=== PATIENT | female | born 1990 | race Caucasian/White ===

== ENCOUNTER 2017-06-09 19:45 | Emergency (ER) | payer OTHER ==
[2017-06-09 20:06] VITALS: BP 133/85; BMI 40.1
--- NOTE | 2017-06-14 10:55 | DR.GENAD ---
HPI - PCP Primary Care Physician: ARMAAN - Complaint/Symptoms Chief Complaint:: FELL IN THE YARD AT HOME WHILE TRYING TO MOVE THE TRASH CAN - Source History Provided: Patient - Mode of Arrival Mode of Arrival: Ambulatory - Timing Onset of Chief Complaint: 06/09/17 PMH - PMH Past Medical History: Yes Past Medical History: Asthma, Hypertension Past Surgical History: Yes Surgical History: - Family History History of Family Medical Conditions: Yes Family Medical History: Cancer, Coronary Artery Disease, Hypertension - Social History Does patient currently use any type of tobacco product: Yes Have you used tobacco products in the last 12 months: Yes Type of Tobacco Use: Cigarettes How many years tobacco product used: 13 Alcohol Use: None Do you use any recreational Drugs:: No Lives With: Friend Lives Where: Home - infectious screening In the last 2 months have you had wt loss of >10#?: NO Have you had fever, night sweats or hemotysis?: No Have you traveled outside the country in the last 6 months?: No PE - Vital Signs Vitals: Temperature 99.2 F Pulse Rate 116 Respiratory Rate 20 Blood Pressure [Right Arm] 133/67 Blood Pressure [Left Arm] 130/76 Blood Pressure 133/85 O2 Sat by Pulse Oximetry 100 - Discharge Plan Disposition: LWBS After Triage Condition: Stable - Follow ups/Referrals Follow ups/Referrals: ARMAAN,Debbie [Primary Care Provider] - 3 days - Instructions
== END 2017-06-09 21:29 | disposition left against medical advice (07) ==
LOC: ER 19:45
DX: M79.601 Pain in right arm (principal); W19.XXXA Unspecified fall, initial encounter; Y92.009 Unspecified place in unspecified non-institutional (private) residence as the place of occurrence of the external cause
CPT/HCPCS: 99281